=== PATIENT | female | born 1985 | race Caucasian/White ===

== ENCOUNTER 2020-03-13 15:42 | Emergency (ER) | payer OTHER, SELFPAY ==
[2020-03-13 15:53] VITALS: BP 129/71; PULSE 97; RESP 18; TEMP 36.9; O2SAT 98; BMI 43.7
--- NOTE | 2020-03-13 16:14 | HMH.EDUTC ---
[facility] [place] Disposition Clinical Impression: Vomiting and diarrhea, Encounter for laboratory testing for COVID-19 virus Disposition: Home, Self-Care Condition on Discharge: Good Instructions: Preventing the Spread of Coronavirus Discharge Instructions, Nausea and Vomiting-Adult, Diarrhea Additional Instructions: ? Drink extra fluids with and between meals. If you have difficulty drinking, try very small amounts of water or suck on ice chips. ? Avoid fruit juices, as these do not replace minerals and can actually increase diarrhea. ? Children and adults can use sports drinks to replenish electrolytes. Younger children and infants should use products formulated for children, like oral rehydration solutions. ? Eat food in small amounts and let your stomach recover. ? Get lots of rest. You may feel tired or weak. ? No greasy or fried foods for the next 24-48 hours BRAT diet Bananas Rice Apples and [place] ? Make sure to drink plenty of liquids ? Return if needed ? Straight to ER if any life threatening symptoms ? Zofran as prescribed ? You was given an outpatient order for diarrhea panel, please collect specimen and bring back to outpatient lab then call back to the [facility] or follow up with family doctor for results ? Follow up with family doctor in the next 48-72 hours if no improvement or any worsening of symptoms You was given handout with COVID19 quarantine instructions, follow them until you have a negative test result You was tested here in the [facility] today, Call family doctor on Tuesday or call back to [facility] to get your results of your testing Return if needed Straight to ER if any life threatening symptoms Referrals: Provider,Referral, MD [Primary Care Provider] - As needed Time of Disposition: 17:58 Medical Decision Making - Charlse Inquiry Pt receiving controlled substance: No Charles was queried for this patient: No Vital Signs: 03/13/20 15:53 03/13/20 16:16 Temperature 98.5 F 98.5 F Temperature Source Oral Oral Pulse Rate [Right] 97 H 97 H Respiratory Rate 18 18 Blood Pressure [Right Arm] 129/71 129/71 Blood Pressure Mean [Right Arm] 90 90 02 Sat by Pulse Oximetry 98 98 Oxygen Delivery Method Room Air - Lab Data Lab results reviewed: Yes: I reviewed the patient's lab results. Lab Results 03/13/20 16:00: Strep Scn Rapid Clinic Negative 03/13/20 16:30: SARS-CoV-2 IgG Ab (Rapid) Negative, SARS-CoV-2 IgM Ab (Rapid) Negative Orders (Tests/Meds): ED MEDICATIONS Generic Name Dose Route Start Last Admin Trade Name Freq PRN Reason Stop Dose Admin Sodium Chloride 1,000 mls @ 999 mls/hr 03/13/20 16:45 03/13/20 16:38 Sod Chlor 0.9% 1000ml Bag IV 03/13/20 17:45 999 mls/hr .Q1H1M JENNY Administration Discontinued Medications Generic Name Dose Route Start Last Admin Trade Name Freq PRN Reason Stop Dose Admin Ondansetron HCl 4 mg 03/13/20 16:36 03/13/20 16:38 Zofran 4mg/2ml Vial IV 03/13/20 16:37 4 mg ONCE ONE Administration ORDERS Category Date Time Status SARS-CoV-2, DARREN Stat Lab 03/13/20 17:40 Ordered Upper Respiratory Panel, PCR Stat Lab 03/13/20 16:50 Received Strep Screen Confirmation Stat Micro 03/13/20 16:00 Received - Reevaluation(s) Time: 16:40 Reevaluation #1: Patient reports that she was seen by PCP on Tuesday and checked for strep and flu and tested for COVID19 test was negative and prescribed Amoxicillin for sinus infection States that she has continued to have fever, nausea vomiting and diarrhea and not feeling any better States that yesterday started having dry cough, but denies shortness of breath or any chest congestion. Time: 17:02 Reevaluation #3: Patient report that nausea is improved since medication, resting on exam table with ordered fluids infusing awaiting lab results will monitor no distress no vomiting or diarrhea since arrival Time reevaluation 3: 17:59 Reevaluation #2: Patient states that she feels much better after fluids and medication Patient sittin
[2020-03-13 16:16] VITALS: BP 129/71; PULSE 97; RESP 18; TEMP 36.9; O2SAT 98; BMI 43.8
[2020-03-13 16:18] LABS: UTC Strep Screen (Rapid) Negative (Negative)
[2020-03-13 17:32] LABS: Coronavirus 19 IgG Antibody Negative (Negative); Coronavirus 19 IgM Antibody Negative (Negative)
[2020-03-13 17:33] LABS: Adenovirus,PCR Not Detected (NotDetected); Bordetella Pertussis Not Detected (NotDetected); Chlamydophila Pneumoniae, PCR Not Detected (NotDetected); Coronavirus 229E Not Detected (NotDetected); Coronavirus NL63 Not Detected (NotDetected); Coronavirus OC43 Not Detected (NotDetected); Coronovirus HKU1,PCR Not Detected (NotDetected); Human Metapneumovirus Not Detected (NotDetected); Influenza A, PCR Not Detected (NotDetected); Influenza AH1, 2009 Not Detected (NotDetected); Influenza AH1, PCR Not Detected (NotDetected); Influenza AH3,PCR Not Detected (NotDetected); Influenza B, PCR Not Detected (NotDetected); Mycoplasma Pneumoniae, PCR Not Detected (NotDetected); Parainfluenza 1, PCR Not Detected (NotDetected); Parainfluenza 2, PCR Not Detected (NotDetected); Parainfluenza 3, PCR Not Detected (NotDetected); Parainfluenza 4, PCR Not Detected (NotDetected); Respiratory Syncytial Virus Not Detected (NotDetected); Rhinovirus/Enterovirus Not Detected (NotDetected)
[2020-03-13 17:54] VITALS: BP 129/71; PULSE 97; RESP 18; TEMP 36.9; O2SAT 98
[2020-03-15 13:32] LABS: Covid-19 Nasal PCR Sendout Lex Not Detected
== END 2020-03-13 18:09 | disposition home or self-care (01) ==
PROVIDERS: Emergency Provider Nurse Practitioner
DX: R11.10 Vomiting, unspecified (principal); R05 Cough; R50.9 Fever, unspecified
CPT/HCPCS: 86328; 87486; 87581; 87633; 87798; 87880; 96365; 96375; 99203; J2405; U0004